=== PATIENT | female | born 1955 | race Caucasian/White ===

== ENCOUNTER 2016-10-17 11:46 | Inpatient (IN) | payer MEDICAID ==
[2016-10-17] MEDS ORDERED: INFLUENZA VACCINE/PF 60 MCG/0.5 ML DISP.SYRIN IM SCH (12:00)
[2016-10-17] MEDS ORDERED: ACETAMINOPHEN 325 MG TABLET PO PRN (12:04)
[2016-10-17] MEDS ORDERED: traZODone HCL 50 MG TABLET PO PRN (12:04)
--- NOTE | 2016-10-17 12:13 | History and Physical Report ---
History of Present Illnes - History of Present Illness Reason for Visit: COPD exacerbation History of Present Illness: Chanelle is a 61yo woman with a known medical history that includes COPD and CAD s/ p CABG. She has had a cough and shortness of breath for 5-6 days now. She has been using her nebulizer at home without much relief. Her chronic bilateral LE edema has worsened. She is having trouble walking even a few steps because of her shortness of breath. She presented at outpatient clinic today and was found to have 02 saturation of 87% as well as audible wheezing. She reported that she had pneumonia about a year ago. - Past Medical History Cardiac: AFIB, CAD Pulmonary: COPD, Pneumonia Psych: Anxiety Rheumatologic: denies: Fibromyalgia Infectious Disease: Other ENT: denies: Sinusitis Endocrine: Other (Morbid obesity) - Past Surgical History Past Surgical History: CABG (with left radial artery graft) - Past Social History Smoke: Quit Alcohol: Rare Drugs: None Lives: Alone - Health Maintenance Health Maintenance: Cholesterol Influenza Vaccine: No Pneumonia Vaccine: No Resuscitation Status: Resusciation Status Resuscitation Status Full Code Review of Systems - Review of Systems Constitutional: Fever Eyes: negative: vision change, conjunctivae inflammation ENT: negative: Ear Pain, Ear Discharge Respiratory: Cough, Shortness of Breath, SOB with Excertion, Wheezing. negative : Hemoptysis Cardiovascular: Edema, [place]ness Gastrointestinal: negative: Nausea, Vomiting Genitourinary: negative: Dysuria, Frequency Musculoskeletal: Deferred Skin: negative: Rash, Lesions Neurological: negative: Weakness, Change in Speech, Confusion - Medications/Allergies Allergies/Adverse Reactions: Allergies Allergy/AdvReac Type Severity Reaction Status Date / Time No Known Allergies Allergy Verified 11/02/13 21:52 Current Inpatient Medications: Current Inpatient Medications Acetaminophen (Tylenol) 650 mg PO Q6H PRN PRN Reason: Fever >101 Albuterol/Ipratropium (Duoneb) 3 ml NEB Q4 ARABELLA Citalopram Hydrobromide (Celexa) 40 mg PO DAILY ARABELLA Enoxaparin Sodium (Lovenox) 30 mg SQ QD ARABELLA Stop: 10/30/16 12:01 Methylprednisolone Sodium Succinate (Solu-Medrol) 125 mg IVP Q8 ARABELLA Pantoprazole Sodium (Protonix) 40 mg PO 0700 ARABELLA Trazodone HCl (Desyrel) 50 mg PO HS PRN PRN Reason: Insomnia Exam - Exam General: Alert, Oriented to Person, Oriented to Place, Moderate distress ( respiratory) HEENT: Atraumatic, PERRLA, EOMI, Anicteric Sclerae Neck: No: Stridor, Rigidity Lungs: Respiratory Distress, Wheezes, Prolonged Expiration, Decreased Air Movement Cardiovascular: Regular rate Murmur: No: Systolic Murmur, Diastolic Murmur Murmur Location: No: [place] Abdomen: Normal bowel sounds, Soft, No tenderness Genitourinary: No: Right Inguinal Hernia Male Genitourinary: No: Scrotal Edema Female Genitourinary: No: Prolapse Integumentary: Pale Extremities: No clubbing, No cyanosis, Normal pulses, Other (1+ edema) Neurological: Normal speech Psych/Mental Status: Mental status NL (but anxious) Assessment/Plan - Assessment/Plan (1) Influenza A Status: Acute Current Visit: Yes Assessment: With hypoxia and bronchospasm Symptoms have been present for long enough that she will not benefit from Tamiflu Plan: Respiratory support with nebulizers, steroids for bronchospasm (2) Anemia Status: Acute Current Visit: Yes Qualifiers: Anemia type: iron deficiency Iron deficiency anemia type: unspecified iron deficiency Qualified Code(s): D50.9 - Iron deficiency anemia, unspecified Assessment: Transfuse 2 units of packed red blood cells (3) Thrombocytopenia Status: Acute Current Visit: Yes Assessment: Chronic (4) Iron deficiency Status: Acute Current Visit: Yes (5) Morbid obesity Status: Acute Current Visit: Yes Assessment: Chronic (6) Depression Status: Acute Current Visit: Yes Assessment: Continue citalopram (7) Hypercholesterolemia Status: Acute Current Visit: Yes Assessment: Has stopped taking medications several months ago (8) Thrombocytopenia Status: Acute Current Visit: Yes Assessment: Chronic VTE Assessment - RISK FACTOR SCORE VTE RISK FACTOR SCORES: AGE OVER 60 YEARS, ACUTE RESPIRATORY FAILURE/SEVERE COPD - RISK VTE MODERATE RISK: SCORE OF 2 (RISK PROXIMAL DVT 2-4%) PROPHYAXIS NEEDED (On lovenox and SCDs)
[2016-10-17] MEDS ORDERED: SALINE FLUSH 10 ML DISP.SYRIN IVF ONE (12:27)
[2016-10-17 12:31] VITALS: BMI 43.5
[2016-10-17 13:02] LABS: BASOPHILS % 0.4 (0.0-1.5); EOSINOPHILS % 0.4 % (0.0-6.8); LYMPHOCYTES # 0.6 # k/uL (0.6-4.0); MONOCYTES # 0.4 # k/uL (0.0-0.9); MONOCYTES % 10.5 % (0.0-11.0); NEUTROPHILS # 2.5 # k/uL (1.4-7.7)
--- NOTE | 2016-10-17 13:26 | Diagnostic Imaging Report ---
[facility] [address] [facility].[address] [address] Report Submission Date: Oct 17, 2016 12:43:05 PM LABORER PIPELINE Patient Study Name: YAZ SAN Date: Oct 17, 2016 12:11:33 PM LABORER PIPELINE MRN: [id number] Modality Type: CR Gender: F Description: CHEST : 57 Institution: [facility] Physician SOUTH WING/MED SURG Chest -two views CLINICAL HISTORY: Cough, wheezing and dyspnea for 5 days. FINDINGS: Examination of the chest in PA and lateral views with comparison to examination of 07/24/2014 demonstrates cardiomegaly and aortic atherosclerosis. Small right effusion blunts the costophrenic angle. Multiple sternotomy wires are again demonstrated. There is mild pulmonary vascular congestion with perivascular and peribronchial cuffing worse in the perihilar regions. IMPRESSION: Cardiomegaly and aortic atherosclerosis. Pulmonary vascular congestion and right effusion consistent with congestive heart failure. Postoperative chest. Electronically signed on Oct 17, 2016 12:43:05 PM LABORER PIPELINE by: Kevin ADAM
[2016-10-17] MEDS: ENOXAPARIN SODIUM 30 MG/0.3 ML DISP.SYRIN SQ SCH (13:52)
[2016-10-17] MEDS: methylPREDNISolone SOD SUCC 125 MG/2 ML VIAL IVP SCH ×2 (13:53→20:11)
[2016-10-17] MEDS: IPRATROPIUM/ALBUTEROL SULFATE 3 ML AMPUL.NEB NEB SCH ×3 (13:53→20:15)
[2016-10-17] MEDS ORDERED: 0.9 % SODIUM CHLORIDE 100 ML IV ONE (20:13)
[2016-10-18] MEDS: IPRATROPIUM/ALBUTEROL SULFATE 3 ML AMPUL.NEB NEB SCH ×6 (00:54→20:58)
[2016-10-18] MEDS ORDERED: SALINE FLUSH 10 ML DISP.SYRIN IVF ONE ×7 (05:29→19:23)
[2016-10-18] MEDS: methylPREDNISolone SOD SUCC 125 MG/2 ML VIAL IVP SCH ×3 (05:38→20:56)
[2016-10-18 06:35] LABS: MEAN CORPUSCULAR HEMOGLOBIN 18.8 pg (28.0-34.0)
[2016-10-18] MEDS ORDERED: PANTOPRAZOLE SODIUM 40 MG TABLET PO SCH (07:00)
[2016-10-18] MEDS ORDERED: 0.9 % SODIUM CHLORIDE 250 ML IV ONE (07:02)
[2016-10-18] MEDS ORDERED: FUROSEMIDE 40 MG/4 ML VIAL IVP ONE (07:43)
[2016-10-18] MEDS ORDERED: diphenhydrAMINE HCL 25 MG TABLET PO ONE ×2 (07:43→14:14)
[2016-10-18] MEDS ORDERED: ACETAMINOPHEN 325 MG TABLET PO ONE ×2 (07:46→14:14)
--- NOTE | 2016-10-18 07:51 | Inpatient Progress Note ---
Subjective - Required Recertification Statement I anticipate X number of days because-include discharge plan: 5 - Review of Systems Subjective: Patient still feels weak and coughing a lot. Objective - Exam Vitals and I&O: Vital Signs Temp 96.8 F L 10/18/16 06:00 Pulse 92 H 10/18/16 06:00 Resp 16 10/18/16 06:00 BP 160/83 10/18/16 06:00 Pulse Ox 92 10/18/16 06:00 Intake & Output 10/17/16 10/17/16 10/18/16 11:59 23:59 11:59 Intake Total 600 Output Total 800 Balance 600 -800 Weight 107.955 kg 105.233 kg Intake: Oral 600 Output: Urine 800 Other: Voiding Method Toilet # Voids 1 # Bowel Movements 0 General: Alert, Oriented to Person, Oriented to Place, Oriented to Time, Cooperative, Mild distress Lungs: Wheezes, Rhonchi Cardiovascular: Regular rate Abdomen: Other (OTDD - only minimal stool sent for guiac. ? old blood on back of underwear.) - Results Results: Laboratory Results WBC 2.70 K/ul (4.00-12.00) L 10/18/16 06:15 RBC 3.40 M/ul (3.90-5.20) L 10/18/16 06:15 Hgb 6.4 g/dL (12.0-16.0) L* 10/18/16 06:15 Hct 25.7 % (34.5-46.5) L 10/18/16 06:15 MCV 75.4 fl (80.0-100.0) L 10/18/16 06:15 MCH 18.8 pg (28.0-34.0) L 10/18/16 06:15 MCHC 0.0 g/dL (30.0-36.0) L 10/18/16 06:15 RDW 18.0 % (11.3-14.3) H 10/18/16 06:15 Plt Count 40 K/mm3 (130-400) L 10/18/16 06:15 Neut % (Auto) 69.2 % (39.0-79.0) 10/17/16 12:45 Lymph % (Auto) 17.0 % (16.0-50.0) 10/17/16 12:45 [place] % (Auto) 10.5 % (0.0-11.0) 10/17/16 12:45 Eos % (Auto) 0.4 % (0.0-6.8) 10/17/16 12:45 Baso % (Auto) 0.4 (0.0-1.5) 10/17/16 12:45 Neut # 2.5 # k/uL (1.4-7.7) 10/17/16 12:45 Lymph # 0.6 # k/uL (0.6-4.0) 10/17/16 12:45 [place] # 0.4 # k/uL (0.0-0.9) 10/17/16 12:45 Eos # 0.0 # k/uL (0.0-0.6) 10/17/16 12:45 Baso # 0.0 # k/uL (0.0-0.5) 10/17/16 12:45 Reactive Lymphs % 2.5 % (0.0-5.0) 10/17/16 12:45 Reactive Lymphs # 0.1 # k/uL (0.0-0.8) 10/17/16 12:45 Sodium 134 mmol/L (136-145) L 10/17/16 12:45 Potassium 4.6 mmol/L (3.5-5.0) 10/17/16 12:45 Chloride 101 mmol/L (98-110) 10/17/16 12:45 Carbon Dioxide 26 mmol/L (20-32) 10/17/16 12:45 BUN 25 mg/dL (10-26) 10/17/16 12:45 Creatinine 1.7 mg/dL (0.4-1.5) H 10/17/16 12:45 Estimated Creat Clear 70 10/17/16 12:45 Est GFR ( Amer) 39 (60-) L 10/17/16 12:45 Est GFR (Non-Af Amer) 33 (60-) L 10/17/16 12:45 Glucose 88 mg/dL (70-99) 10/17/16 12:45 Calcium 9.5 mg/dL (8.5-10.5) 10/17/16 12:45 Total Bilirubin 0.9 mg/dL (0.2-1.2) 10/17/16 12:45 AST 40 U/L (0-41) 10/17/16 12:45 ALT 23 U/L (0-45) 10/17/16 12:45 Alkaline Phosphatase 74 U/L (46-116) 10/17/16 12:45 Troponin I 0.05 ng/mL (0.03-0.06) 10/17/16 12:45 NT-Pro-B Natriuret Pep 2865.3 pg/mL (15.0-125.0) H 10/17/16 12:45 Total Protein 7.7 g/dL (6.0-8.5) 10/17/16 12:45 Albumin 4.6 g/dL (3.0-5.5) 10/17/16 12:45 Influenza Type A Ag Positive (NEGATIVE) H 10/17/16 13:15 Influenza Type B Ag Negative (NEGATIVE) 10/17/16 13:15 Assessment/Plan - Assessment/Plan (1) CHF (congestive heart failure) Status: Acute Current Visit: Yes Qualifiers: Congestive heart failure type: unspecified congestive heart failure type Congestive heart failure chronicity: acute on chronic Qualified Code(s): I50.9 - Heart failure, unspecified Plan: Patient had stopped meds except lasix. Thinks lisinopril made her cough. Start ARB and add bblocker if tolerated. Plan echo as outpatient. IV lasix today before and between blood transfusion. In the past diuresis was slowed due to worsening creatinine. Will watch closely. (2) Anemia Status: Acute Current Visit: Yes Qualifiers: Anemia type: iron deficiency Iron deficiency anemia type: unspecified iron deficiency Qualified Code(s): D50.9 - Iron deficiency anemia, unspecified Plan: Iron studies ordered. Plan slow transfusion of 2 units today (hgb down to 6.4 with no IVF running). STool guiac negative today but not much stool sent. Plan to repeat stool guiacs. H/O ulcer. Will change protonix to IV. (3) Influenza A Status: Acute Current Visit: Yes Plan: Given severity of illness, will start tamiflu. (4) Morbid obesity Status: Acute Current Visit: Yes (5) Thrombocytopenia Status: Acute Current Visit: Yes Plan: H/O ITP. Will not do due lovenox as a result. JOEL bang applied. (6) COPD exacerbation Status: Acute Current Visit: Yes Plan: Continue IV steroids, duonebs and O2. Patient has qualified for home O2 in past.
[2016-10-18] MEDS ORDERED: 0.9 % SODIUM CHLORIDE 50 ML IV ONE (07:58)
[2016-10-18] MEDS ORDERED: PANTOPRAZOLE SODIUM INJ. 40 MG VIAL ONE (07:59)
[2016-10-18] MEDS: CITALOPRAM HYDROBROMIDE 20 MG TABLET PO SCH (08:09)
[2016-10-18] MEDS: OSELTAMIVIR PHOSPHATE 75 MG CAPSULE PO SCH ×2 (08:09→20:57)
[2016-10-18] MEDS ORDERED: LOSARTAN POTASSIUM 50 MG TABLET PO SCH (09:00)
[2016-10-18] MEDS ORDERED: guaiFENesin/CODEINE PHOS 30ML BOTTLE PO PRN (09:25)
[2016-10-18] MEDS ORDERED: METOPROLOL TARTRATE 50 MG TABLET PO ONE (09:26)
[2016-10-18] MEDS ORDERED: HYPROMELLOSE OPTH DROPS OP PRN (11:21)
[2016-10-18] MEDS ORDERED: FUROSEMIDE 40 MG/4 ML VIAL IVP SCH (13:00)
[2016-10-18] MEDS: ENOXAPARIN SODIUM 30 MG/0.3 ML DISP.SYRIN SQ SCH (13:07)
[2016-10-18] MEDS: PANTOPRAZOLE SODIUM 40 MG in 0.9 % SODIUM CHLORIDE 50 ML IV SCH (13:19)
[2016-10-18 19:21] LABS: SERUM IRON 13 ug/dL (37-145)
[2016-10-18 19:34] LABS: MEAN CORPUSCULAR HEMOGLOBIN 21.3 pg (28.0-34.0)
[2016-10-19] MEDS: IPRATROPIUM/ALBUTEROL SULFATE 3 ML AMPUL.NEB NEB SCH ×6 (00:55→21:01)
[2016-10-19] MEDS ORDERED: SALINE FLUSH 10 ML DISP.SYRIN IVF ONE ×3 (04:44→20:58)
[2016-10-19] MEDS: methylPREDNISolone SOD SUCC 125 MG/2 ML VIAL IVP SCH ×3 (06:01→20:57)
[2016-10-19 07:13] LABS: BASOPHILS % 0.1 (0.0-1.5); EOSINOPHILS % 0.1 % (0.0-6.8); LYMPHOCYTES # 0.6 # k/uL (0.6-4.0); MEAN CORPUSCULAR HEMOGLOBIN 21.1 pg (28.0-34.0); MONOCYTES # 0.2 # k/uL (0.0-0.9); MONOCYTES % 2.1 % (0.0-11.0); NEUTROPHILS # 6.2 # k/uL (1.4-7.7)
[2016-10-19 07:19] LABS: ANISOCYTOSIS 2+ (NEGATIVE); EOSINOPHILS % 1 % (0-7); HYPOCHROMASIA 1+ (NEGATIVE); SEGMENTED NEUTROPHILS % 83 % (39-79)
--- NOTE | 2016-10-19 07:38 | Inpatient Progress Note ---
Subjective - Required Recertification Statement I anticipate X number of days because-include discharge plan: 2 - Review of Systems Subjective: Patient feeling some better. Slept poorly. Breathing is improved. Still coughing. Objective - Exam Vitals and I&O: Vital Signs Temp 98.5 F 10/19/16 05:51 Pulse 81 10/19/16 05:51 Resp 20 10/19/16 05:51 BP 130/61 10/19/16 05:51 Pulse Ox 98 10/19/16 05:51 Intake & Output 10/18/16 10/18/16 10/19/16 11:59 23:59 11:59 Intake Total 360 2300 Output Total 800 1350 600 Balance -440 950 -600 Weight 105.233 kg 107.048 kg Intake: IV 75 Right Antecubital 75 Oral 360 1900 Blood Product 325 Output: Urine 800 1350 600 Other: Voiding Method Bedside Commode Bedside Commode # Voids 1 # Bowel Movements 0 General: Alert, Oriented to Person, Oriented to Place, Oriented to Time, Cooperative, No acute distress Lungs: Wheezes Cardiovascular: Regular rate - Results Results: Laboratory Results WBC 7.00 K/ul (4.00-12.00) 10/19/16 06:45 RBC 4.11 M/ul (3.90-5.20) 10/19/16 06:45 Hgb 8.7 g/dL (12.0-16.0) L 10/19/16 06:45 Hct 32.0 % (34.5-46.5) L 10/19/16 06:45 MCV 77.9 fl (80.0-100.0) L 10/19/16 06:45 MCH 21.1 pg (28.0-34.0) L 10/19/16 06:45 MCHC 27.1 g/dL (30.0-36.0) L 10/19/16 06:45 RDW 17.9 % (11.3-14.3) H 10/19/16 06:45 Plt Count 39 K/mm3 (130-400) L 10/19/16 06:45 Neut % (Auto) 88.4 % (39.0-79.0) H 10/19/16 06:45 Lymph % (Auto) 8.7 % (16.0-50.0) L 10/19/16 06:45 [place] % (Auto) 2.1 % (0.0-11.0) 10/19/16 06:45 Eos % (Auto) 0.1 % (0.0-6.8) 10/19/16 06:45 Baso % (Auto) 0.1 (0.0-1.5) 10/19/16 06:45 Neut # 6.2 # k/uL (1.4-7.7) 10/19/16 06:45 Lymph # 0.6 # k/uL (0.6-4.0) 10/19/16 06:45 [place] # 0.2 # k/uL (0.0-0.9) 10/19/16 06:45 Eos # 0.0 # k/uL (0.0-0.6) 10/19/16 06:45 Baso # 0.0 # k/uL (0.0-0.5) 10/19/16 06:45 Seg Neutrophils % 83 % (39-79) H 10/18/16 19:25 Band Neutrophils % 15 % (0-12) H 10/18/16 19:25 Lymphocytes % 1 % (16-50) L 10/18/16 19:25 Reactive Lymphs % 0.7 % (0.0-5.0) 10/19/16 06:45 Eosinophils % 1 % (0-7) 10/18/16 19:25 Reactive Lymphs # 0.0 # k/uL (0.0-0.8) 10/19/16 06:45 Plt Morphology Comment Normal (NORMAL) 10/18/16 19:25 Hypochromasia 1+ (NEGATIVE) H 10/18/16 19:25 Anisocytosis 2+ (NEGATIVE) H 10/18/16 19:25 RBC Morph Comment Abnormal (NORMAL) H 10/18/16 19:25 Sodium 136 mmol/L (136-145) 10/19/16 06:45 Potassium 5.1 mmol/L (3.5-5.0) H 10/19/16 06:45 Chloride 104 mmol/L (98-110) 10/19/16 06:45 Carbon Dioxide 25 mmol/L (20-32) 10/19/16 06:45 BUN 37 mg/dL (10-26) H 10/19/16 06:45 Creatinine 1.6 mg/dL (0.4-1.5) H 10/19/16 06:45 Estimated Creat Clear 74 10/19/16 06:45 Est GFR ( Amer) 42 (60-) L 10/19/16 06:45 Est GFR (Non-Af Amer) 35 (60-) L 10/19/16 06:45 Glucose 130 mg/dL (70-99) H 10/19/16 06:45 Calcium 9.2 mg/dL (8.5-10.5) 10/19/16 06:45 Iron 13 ug/dL (37-145) L 10/18/16 06:15 TIBC 392 ug/dL (250-425) 10/18/16 06:15 % Saturation 3 % (20-50) L 10/18/16 06:15 Ferritin 19 ng/mL (13-150) 10/18/16 06:15 Total Bilirubin 0.9 mg/dL (0.2-1.2) 10/17/16 12:45 AST 40 U/L (0-41) 10/17/16 12:45 ALT 23 U/L (0-45) 10/17/16 12:45 Alkaline Phosphatase 74 U/L (46-116) 10/17/16 12:45 Troponin I 0.05 ng/mL (0.03-0.06) 10/17/16 12:45 NT-Pro-B Natriuret Pep 2865.3 pg/mL (15.0-125.0) H 10/17/16 12:45 Total Protein 7.7 g/dL (6.0-8.5) 10/17/16 12:45 Albumin 4.6 g/dL (3.0-5.5) 10/17/16 12:45 Stool Guaiac Test Negative (NEGATIVE) 10/18/16 08:00 Influenza Type A Ag Positive (NEGATIVE) H 10/17/16 13:15 Influenza Type B Ag Negative (NEGATIVE) 10/17/16 13:15 Assessment/Plan - Assessment/Plan (1) CHF (congestive heart failure) Status: Acute Current Visit: Yes Qualifiers: Congestive heart failure type: unspecified congestive heart failure type Congestive heart failure chronicity: acute on chronic Qualified Code(s): I50.9 - Heart failure, unspecified Plan: Will give IV lasix this am. Patient had tachycardia yesterday so losartan not given, but metoprolol. Brought BP and pulse low. Will start losartan again today. low sodium diet. (2) Anemia Status: Acute Current Visit: Yes Qualifiers: Anemia type: iron deficiency Iron deficiency anemia type: unspecified iron deficiency Qualified Code(s): D50.9 - Iron deficiency anemia, unspecified Plan: Improved after 2 units of prbc's. STool guiac negative x 2. Iron deficient. Start FeSO4. Patient reports it made her sick in past so will watch closely. Watch for constipation. (3) Influenza A Status: Acute Current Visit: Yes Plan: Cont. tamiflu. (4) Morbid obesity Status: Acute Current Visit: Yes (5) Thrombocytopenia Status: Acute Current Visit: Yes (6) COPD exacerbation Status: Acute Current Visit: Yes Plan: Cont. IV steroids.
[2016-10-19] MEDS ORDERED: FUROSEMIDE 40 MG/4 ML VIAL IVP ONE (08:03)
[2016-10-19] MEDS: PANTOPRAZOLE SODIUM 40 MG in 0.9 % SODIUM CHLORIDE 50 ML IV SCH (10:04)
[2016-10-19] MEDS: FERROUS SULFATE 325 MG TABLET PO SCH ×2 (10:42→18:50)
[2016-10-19] MEDS: LOSARTAN POTASSIUM 50 MG TABLET PO SCH (10:42)
[2016-10-19] MEDS: ENOXAPARIN SODIUM 30 MG/0.3 ML DISP.SYRIN SQ SCH (10:43)
[2016-10-19] MEDS: CITALOPRAM HYDROBROMIDE 20 MG TABLET PO SCH (10:43)
[2016-10-19] MEDS: OSELTAMIVIR PHOSPHATE 75 MG CAPSULE PO SCH ×2 (10:43→21:38)
[2016-10-19] MEDS ORDERED: METOPROLOL TARTRATE 50 MG TABLET PO ONE (19:34)
[2016-10-20] MEDS: IPRATROPIUM/ALBUTEROL SULFATE 3 ML AMPUL.NEB NEB SCH ×7 (01:08→23:16)
[2016-10-20] MEDS ORDERED: SALINE FLUSH 10 ML DISP.SYRIN IVF ONE ×5 (05:43→14:09)
[2016-10-20] MEDS: methylPREDNISolone SOD SUCC 125 MG/2 ML VIAL IVP SCH ×3 (05:44→23:05)
--- NOTE | 2016-10-20 09:05 | Inpatient Progress Note ---
Subjective - Required Recertification Statement I anticipate X number of days because-include discharge plan: 2 - Review of Systems Subjective: Patient worried about green sputum she is coughing up. Got diarrhea from iron. HR has been up to 160's when she is up moving. Has received 2 doses of metoprolol as a result. Objective - Exam Vitals and I&O: Vital Signs Temp 96.6 F L 10/20/16 06:00 Pulse 115 H 10/20/16 06:00 Resp 22 10/20/16 06:00 BP 106/55 10/20/16 06:00 Pulse Ox 95 10/20/16 06:00 Intake & Output 10/19/16 10/19/16 10/20/16 11:59 23:59 11:59 Intake Total 240 560 Output Total 600 Balance -360 560 Weight 107.048 kg 107.501 kg Intake: Oral 240 560 Output: Urine 600 Other: Voiding Method Bedside Commode Toilet # Voids 2 2 # Bowel Movements 2 General: Alert, Oriented to Person, Oriented to Place, Oriented to Time, Cooperative, No acute distress Lungs: Wheezes, Rhonchi Cardiovascular: Regular rate - Results Results: Laboratory Results WBC 7.00 K/ul (4.00-12.00) 10/19/16 06:45 RBC 4.11 M/ul (3.90-5.20) 10/19/16 06:45 Hgb 8.7 g/dL (12.0-16.0) L 10/19/16 06:45 Hct 32.0 % (34.5-46.5) L 10/19/16 06:45 MCV 77.9 fl (80.0-100.0) L 10/19/16 06:45 MCH 21.1 pg (28.0-34.0) L 10/19/16 06:45 MCHC 27.1 g/dL (30.0-36.0) L 10/19/16 06:45 RDW 17.9 % (11.3-14.3) H 10/19/16 06:45 Plt Count 39 K/mm3 (130-400) L 10/19/16 06:45 Neut % (Auto) 88.4 % (39.0-79.0) H 10/19/16 06:45 Lymph % (Auto) 8.7 % (16.0-50.0) L 10/19/16 06:45 [place] % (Auto) 2.1 % (0.0-11.0) 10/19/16 06:45 Eos % (Auto) 0.1 % (0.0-6.8) 10/19/16 06:45 Baso % (Auto) 0.1 (0.0-1.5) 10/19/16 06:45 Neut # 6.2 # k/uL (1.4-7.7) 10/19/16 06:45 Lymph # 0.6 # k/uL (0.6-4.0) 10/19/16 06:45 [place] # 0.2 # k/uL (0.0-0.9) 10/19/16 06:45 Eos # 0.0 # k/uL (0.0-0.6) 10/19/16 06:45 Baso # 0.0 # k/uL (0.0-0.5) 10/19/16 06:45 Seg Neutrophils % 83 % (39-79) H 10/18/16 19:25 Band Neutrophils % 15 % (0-12) H 10/18/16 19:25 Lymphocytes % 1 % (16-50) L 10/18/16 19:25 Reactive Lymphs % 0.7 % (0.0-5.0) 10/19/16 06:45 Eosinophils % 1 % (0-7) 10/18/16 19:25 Reactive Lymphs # 0.0 # k/uL (0.0-0.8) 10/19/16 06:45 Plt Morphology Comment Normal (NORMAL) 10/18/16 19:25 Hypochromasia 1+ (NEGATIVE) H 10/18/16 19:25 Anisocytosis 2+ (NEGATIVE) H 10/18/16 19:25 RBC Morph Comment Abnormal (NORMAL) H 10/18/16 19:25 Sodium 136 mmol/L (136-145) 10/19/16 06:45 Potassium 5.1 mmol/L (3.5-5.0) H 10/19/16 06:45 Chloride 104 mmol/L (98-110) 10/19/16 06:45 Carbon Dioxide 25 mmol/L (20-32) 10/19/16 06:45 BUN 37 mg/dL (10-26) H 10/19/16 06:45 Creatinine 1.6 mg/dL (0.4-1.5) H 10/19/16 06:45 Estimated Creat Clear 74 10/19/16 06:45 Est GFR ( Amer) 42 (60-) L 10/19/16 06:45 Est GFR (Non-Af Amer) 35 (60-) L 10/19/16 06:45 Glucose 130 mg/dL (70-99) H 10/19/16 06:45 Calcium 9.2 mg/dL (8.5-10.5) 10/19/16 06:45 Iron 13 ug/dL (37-145) L 10/18/16 06:15 TIBC 392 ug/dL (250-425) 10/18/16 06:15 % Saturation 3 % (20-50) L 10/18/16 06:15 Ferritin 19 ng/mL (13-150) 10/18/16 06:15 Total Bilirubin 0.9 mg/dL (0.2-1.2) 10/17/16 12:45 AST 40 U/L (0-41) 10/17/16 12:45 ALT 23 U/L (0-45) 10/17/16 12:45 Alkaline Phosphatase 74 U/L (46-116) 10/17/16 12:45 Troponin I 0.05 ng/mL (0.03-0.06) 10/17/16 12:45 NT-Pro-B Natriuret Pep 2865.3 pg/mL (15.0-125.0) H 10/17/16 12:45 Total Protein 7.7 g/dL (6.0-8.5) 10/17/16 12:45 Albumin 4.6 g/dL (3.0-5.5) 10/17/16 12:45 Occult Blood (ICT) #2 Negative (NEGATIVE) 10/19/16 05:00 Stool Guaiac Test Negative (NEGATIVE) 10/18/16 08:00 Influenza Type A Ag Positive (NEGATIVE) H 10/17/16 13:15 Influenza Type B Ag Negative (NEGATIVE) 10/17/16 13:15 Assessment/Plan - Assessment/Plan (1) CHF (congestive heart failure) Status: Acute Current Visit: Yes Qualifiers: Congestive heart failure type: unspecified congestive heart failure type Congestive heart failure chronicity: acute on chronic Qualified Code(s): I50.9 - Heart failure, unspecified Plan: Will continue IV lasix today. Cr ok. Repeat CXR. RE-evaluate need for lasix tomorrow. Weight unchanged. Question accurate I&O's. Watch K+ and Cr. Try to add low dose BBlocker today of coreg to control HR. Watch making asthma worse and dropping BP too low. (2) Anemia Status: Acute Current Visit: Yes Qualifiers: Anemia type: iron deficiency Iron deficiency anemia type: unspecified iron deficiency Qualified Code(s): D50.9 - Iron deficiency anemia, unspecified Plan: Stable after 2 units PRBC's. (3) Influenza A Status: Acute Current Visit: Yes (4) Morbid obesity Status: Acute Current Visit: Yes (5) Thrombocytopenia Status: Acute Current Visit: Yes (6) COPD exacerbation Status: Acute Current Visit: Yes Plan: Cont. IV steroids, duonebs, O2. Repeat CXR today to check again for pneumonia. Consider antibiotic.
[2016-10-20] MEDS: CITALOPRAM HYDROBROMIDE 20 MG TABLET PO SCH (09:33)
[2016-10-20] MEDS: LOSARTAN POTASSIUM 50 MG TABLET PO SCH (09:33)
[2016-10-20] MEDS: PANTOPRAZOLE SODIUM 40 MG in 0.9 % SODIUM CHLORIDE 50 ML IV SCH (09:34)
[2016-10-20] MEDS: OSELTAMIVIR PHOSPHATE 75 MG CAPSULE PO SCH ×2 (09:35→20:27)
[2016-10-20] MEDS: CARVEDILOL 6.25 MG TABLET PO SCH ×3 (09:37→23:14)
[2016-10-20] MEDS: FUROSEMIDE 20 MG/2 ML VIAL IVP SCH ×2 (10:40→23:05)
[2016-10-20] MEDS: FERROUS SULFATE 325 MG TABLET PO SCH ×2 (12:02→18:13)
[2016-10-20] MEDS ORDERED: methylPREDNISolone SOD SUCC 40 MG/ML VIAL ONE ×2 (14:16→19:43)
--- NOTE | 2016-10-20 16:53 | Diagnostic Imaging Report ---
[facility] [address] [facility].[address] [address] Report Submission Date: Oct 20, 2016 1:02:24 PM [employer] OUTREACH WORKER Patient Study Name: YAZ SAN Date: Oct 20, 2016 10:10:07 AM [employer] HE[employer] OUTREACH WORKER MRN: [id number] Modality Type: CR Gender: F Description: CHEST : 57 Institution: [facility] Physician SOUTH WING/MED SURG Chest two views HISTORY: Cough and wheezing FINDINGS: Central pulmonary artery enlargement and median sternotomy are observed. Right posterior costophrenic sulcus blunting is observed. There is no evidence of confluent infiltrate. Heart size is upper normal. The left heart border is obscured. IMPRESSION: Central pulmonary artery enlargement raises the possibility of pulmonary hypertension. Sternotomy. Small right pleural effusion. Obscured left heart border suggests pericardial fat pad versus lingular atelectasis or scar. Electronically signed on Oct 20, 2016 1:02:24 PM PUBLIC HEALTH OUTREACH WORKER by: Harry ADAM
[2016-10-20] MEDS ORDERED: FLUCONAZOLE 150 MG TABLET PO ONE ×2 (18:00→18:11)
[2016-10-20] MEDS: ENOXAPARIN SODIUM 30 MG/0.3 ML DISP.SYRIN SQ SCH (18:12)
[2016-10-20] MEDS ORDERED: NYSTATIN POWDER BOTTLE TP ONE (19:42)
[2016-10-20] MEDS: NYSTATIN POWDER BOTTLE TP SCH (20:27)
[2016-10-21] MEDS: IPRATROPIUM/ALBUTEROL SULFATE 3 ML AMPUL.NEB NEB SCH ×6 (01:00→22:18)
[2016-10-21] MEDS ORDERED: methylPREDNISolone SOD SUCC 40 MG/ML VIAL ONE ×2 (04:07→13:04)
[2016-10-21] MEDS ORDERED: SALINE FLUSH 10 ML DISP.SYRIN IVF ONE ×5 (04:08→22:27)
[2016-10-21] MEDS: methylPREDNISolone SOD SUCC 125 MG/2 ML VIAL IVP SCH ×3 (06:15→23:39)
[2016-10-21 07:27] LABS: eGFR (African) > 60; eGFR (Non-African) > 60
[2016-10-21] MEDS: CARVEDILOL 6.25 MG TABLET PO SCH ×2 (08:37→17:42)
[2016-10-21] MEDS: CITALOPRAM HYDROBROMIDE 20 MG TABLET PO SCH (08:38)
[2016-10-21] MEDS: LOSARTAN POTASSIUM 50 MG TABLET PO SCH (08:38)
[2016-10-21] MEDS: NYSTATIN POWDER BOTTLE TP SCH ×2 (08:39→20:55)
[2016-10-21] MEDS: PANTOPRAZOLE SODIUM 40 MG in 0.9 % SODIUM CHLORIDE 50 ML IV SCH (08:39)
[2016-10-21] MEDS: OSELTAMIVIR PHOSPHATE 75 MG CAPSULE PO SCH ×2 (08:39→20:59)
[2016-10-21] MEDS: FERROUS SULFATE 325 MG TABLET PO SCH ×2 (08:40→17:43)
[2016-10-21] MEDS: FUROSEMIDE 20 MG/2 ML VIAL IVP SCH ×2 (09:48→23:40)
[2016-10-21] MEDS: ENOXAPARIN SODIUM 30 MG/0.3 ML DISP.SYRIN SQ SCH (13:18)
[2016-10-22] MEDS: IPRATROPIUM/ALBUTEROL SULFATE 3 ML AMPUL.NEB NEB SCH ×4 (01:45→13:18)
[2016-10-22] MEDS: methylPREDNISolone SOD SUCC 125 MG/2 ML VIAL IVP SCH ×2 (06:21→13:18)
--- NOTE | 2016-10-22 08:36 | Discharge Summary ---
Discharge Summary - Discharge Sumary History of Present Illness: Chanelle is a 61yo woman with a known medical history that includes COPD and CAD s/ p CABG. She has had a cough and shortness of breath for 5-6 days now. She has been using her nebulizer at home without much relief. Her chronic bilateral LE edema has worsened. She is having trouble walking even a few steps because of her shortness of breath. She presented at outpatient clinic today and was found to have 02 saturation of 87% as well as audible wheezing. She reported that she had pneumonia about a year ago. Condition at Discharge: Stable Home Medications: Ambulatory Orders Medication Instructions Recorded Albuterol Sulfate 2.5 mg NEB Q4H #100 ampul.neb 10/22/16 Carvedilol [Coreg] 3.15 mg PO BID #60 tablet 10/22/16 Ferrous Sulfate [Feosol] 325 mg PO BID #60 tablet. 10/22/16 Furosemide [Lasix] 40 mg PO DAILY #30 tablet 10/22/16 Losartan Potassium [Cozaar] 25 mg PO DAILY #30 tablet 10/22/16 predniSONE [Deltasone] 10 mg PO DAILY #30 tablet 10/22/16 Consultations this Visit: None Procedures this Visit: Transfusion (2 units PRBC's) Allergies/Adverse Reactions: Allergies Allergy/AdvReac Type Severity Reaction Status Date / Time No Known Allergies Allergy Verified 11/02/13 21:52 Discharge Summary: Patient was admitted with Influenza A causing COPD exacerbation and CHF exacerbation. This was compounded with the fact that patient had not been compliant with medications. She would found to be anemic with HGB dropping to 6.4. Stool guiac negative x 2. Iron studies showed deficiency. Transfused 2 units PRBC's. Each unit was premedicated with lasix 40 mg IV, tylenol 650 mg, and benadryl 25 mg po. Hgb stayed stable in the upper 8 range. Started on tamiflu 75 mg bid, solumedrol 80 mg q8hr IV, duonebs q4hr, and O2. CXR on admission showed CHF but this resolved after IV lasix diuresis. Patient would get tachycardic when up on the toilet. Coreg 3.125 mg bid was started. Patient tolerated that well. Will plan to get echo on discharge and start ARB as tolerated (ACEI cough). Weaned off O2 and discharged home in good condition. Hospital Course: Discharge Dx: Influenza A. COPD exacerbation. CHF exacerbation. Anemia with guiac negative stool x 2. Tachycardia. Disposition : home. 
[2016-10-22] MEDS: CITALOPRAM HYDROBROMIDE 20 MG TABLET PO SCH (09:15)
[2016-10-22] MEDS: LOSARTAN POTASSIUM 50 MG TABLET PO SCH (09:15)
[2016-10-22] MEDS: OSELTAMIVIR PHOSPHATE 75 MG CAPSULE PO SCH (09:16)
[2016-10-22] MEDS: CARVEDILOL 6.25 MG TABLET PO SCH (09:18)
[2016-10-22 09:23] VITALS: BP 112/63
[2016-10-22] MEDS: PANTOPRAZOLE SODIUM 40 MG in 0.9 % SODIUM CHLORIDE 50 ML IV SCH (10:04)
[2016-10-22] MEDS: NYSTATIN POWDER BOTTLE TP SCH (10:04)
[2016-10-22] MEDS: FUROSEMIDE 20 MG/2 ML VIAL IVP SCH (10:04)
[2016-10-22] MEDS ORDERED: SALINE FLUSH 10 ML DISP.SYRIN IVF ONE (10:38)
--- NOTE | 2016-10-22 11:21 | Inpatient Progress Note ---
Subjective - Required Recertification Statement I anticipate X number of days because-include discharge plan: 1 day - Review of Systems Events since last encounter: Patient states that she is feeling better today. Still having some cough and wheezing and SOB with exertion but improved. Has a mild cough. No chest pain or pressure. General: Denies: Chills HEENT: Denies: Head Aches Cardiovascular: Denies: Chest Pain, Palpitations, Orthopnea Gastrointestinal: Denies: Nausea, Vomiting, Abdominal Pain Objective - Exam Vitals and I&O: Vital Signs Temp 98.3 F 10/22/16 09:21 Pulse 117 H 10/22/16 09:21 Resp 18 10/22/16 09:21 BP 112/63 10/22/16 09:21 Pulse Ox 97 10/22/16 09:21 Intake & Output 10/21/16 10/21/16 10/22/16 11:59 23:59 11:59 Intake Total 240 840 360 Output Total 750 800 Balance -510 840 -440 Weight 107.501 kg 105.233 kg Intake: Oral 240 840 360 Output: Urine 750 800 Other: Voiding Method Toilet Toilet General: Alert, Oriented to Person, Oriented to Place, Oriented to Time, Cooperative, No acute distress Neck: Supple Lungs: Normal air movement, Wheezes (expiratory bilat). No: Rales, Rhonchi Cardiovascular: Regular rate, Normal S1, Normal S2, No murmurs Abdomen: Normal bowel sounds, Soft, No tenderness Skin: Normal, [place], Warm, Dry Neurological: Normal speech - Results Results: Laboratory Results WBC 7.00 K/ul (4.00-12.00) 10/19/16 06:45 RBC 4.11 M/ul (3.90-5.20) 10/19/16 06:45 Hgb 8.7 g/dL (12.0-16.0) L 10/19/16 06:45 Hct 32.0 % (34.5-46.5) L 10/19/16 06:45 MCV 77.9 fl (80.0-100.0) L 10/19/16 06:45 MCH 21.1 pg (28.0-34.0) L 10/19/16 06:45 MCHC 27.1 g/dL (30.0-36.0) L 10/19/16 06:45 RDW 17.9 % (11.3-14.3) H 10/19/16 06:45 Plt Count 39 K/mm3 (130-400) L 10/19/16 06:45 Neut % (Auto) 88.4 % (39.0-79.0) H 10/19/16 06:45 Lymph % (Auto) 8.7 % (16.0-50.0) L 10/19/16 06:45 [place] % (Auto) 2.1 % (0.0-11.0) 10/19/16 06:45 Eos % (Auto) 0.1 % (0.0-6.8) 10/19/16 06:45 Baso % (Auto) 0.1 (0.0-1.5) 10/19/16 06:45 Neut # 6.2 # k/uL (1.4-7.7) 10/19/16 06:45 Lymph # 0.6 # k/uL (0.6-4.0) 10/19/16 06:45 [place] # 0.2 # k/uL (0.0-0.9) 10/19/16 06:45 Eos # 0.0 # k/uL (0.0-0.6) 10/19/16 06:45 Baso # 0.0 # k/uL (0.0-0.5) 10/19/16 06:45 Seg Neutrophils % 83 % (39-79) H 10/18/16 19:25 Band Neutrophils % 15 % (0-12) H 10/18/16 19:25 Lymphocytes % 1 % (16-50) L 10/18/16 19:25 Reactive Lymphs % 0.7 % (0.0-5.0) 10/19/16 06:45 Eosinophils % 1 % (0-7) 10/18/16 19:25 Reactive Lymphs # 0.0 # k/uL (0.0-0.8) 10/19/16 06:45 Plt Morphology Comment Normal (NORMAL) 10/18/16 19:25 Hypochromasia 1+ (NEGATIVE) H 10/18/16 19:25 Anisocytosis 2+ (NEGATIVE) H 10/18/16 19:25 RBC Morph Comment Abnormal (NORMAL) H 10/18/16 19:25 Sodium 137 mmol/L (136-145) 10/21/16 06:25 Potassium 4.2 mmol/L (3.5-5.0) 10/21/16 06:25 Chloride 102 mmol/L (98-110) 10/21/16 06:25 Carbon Dioxide 29 mmol/L (20-32) 10/21/16 06:25 BUN 35 mg/dL (10-26) H 10/21/16 06:25 Creatinine 1.2 mg/dL (0.4-1.5) 10/21/16 06:25 Estimated Creat Clear 99 10/21/16 06:25 Est GFR ( Amer) > 60 (60-) 10/21/16 06:25 Est GFR (Non-Af Amer) > 60 (60-) 10/21/16 06:25 Glucose 118 mg/dL (70-99) H 10/21/16 06:25 Calcium 9.3 mg/dL (8.5-10.5) 10/21/16 06:25 Iron 13 ug/dL (37-145) L 10/18/16 06:15 TIBC 392 ug/dL (250-425) 10/18/16 06:15 % Saturation 3 % (20-50) L 10/18/16 06:15 Ferritin 19 ng/mL (13-150) 10/18/16 06:15 Total Bilirubin 0.9 mg/dL (0.2-1.2) 10/17/16 12:45 AST 40 U/L (0-41) 10/17/16 12:45 ALT 23 U/L (0-45) 10/17/16 12:45 Alkaline Phosphatase 74 U/L (46-116) 10/17/16 12:45 Troponin I 0.05 ng/mL (0.03-0.06) 10/17/16 12:45 NT-Pro-B Natriuret Pep 2865.3 pg/mL (15.0-125.0) H 10/17/16 12:45 Total Protein 7.7 g/dL (6.0-8.5) 10/17/16 12:45 Albumin 4.6 g/dL (3.0-5.5) 10/17/16 12:45 Occult Blood (ICT) #2 Negative (NEGATIVE) 10/19/16 05:00 Stool Guaiac Test Negative (NEGATIVE) 10/18/16 08:00 Influenza Type A Ag Positive (NEGATIVE) H 10/17/16 13:15 Influenza Type B Ag Negative (NEGATIVE) 10/17/16 13:15 Assessment/Plan - Assessment/Plan (1) Influenza A Status: Acute Current Visit: Yes Assessment: improved, no fever (2) COPD exacerbation Status: Acute Current Visit: Yes Assessment: stable, improved (3) CHF (congestive heart failure) Status: Acute Current Visit: Yes Qualifiers: Congestive heart failure type: unspecified congestive heart failure type Congestive heart failure chronicity: acute on chronic Qualified Code(s): I50.9 - Heart failure, unspecified Assessment: stable (4) Tachyarrhythmia Status: Acute Current Visit: Yes Assessment: Patient has been having some tachycardia, mainly with being up. Seems to be doing some better. Rate is not going up as much, is on B zohra (5) Hyperglycemia Status: Acute Current Visit: Yes Assessment: Probably relate to steroids, will continue to monitor
[2016-10-22] MEDS: FERROUS SULFATE 325 MG TABLET PO SCH (11:38)
[2016-10-22] MEDS: ENOXAPARIN SODIUM 30 MG/0.3 ML DISP.SYRIN SQ SCH (12:36)
== END 2016-10-22 13:05 | disposition home or self-care (01) | DRG 192 ==
LOC: SOUTH 11:46
PROVIDERS: ADMIT Family Medicine; ATTEND Family Medicine
DX: J44.1 Chronic obstructive pulmonary disease with (acute) exacerbation (principal); J11.1 Influenza due to unidentified influenza virus with other respiratory manifestations; D50.9 Iron deficiency anemia, unspecified; D69.6 Thrombocytopenia, unspecified; E66.01 Morbid (severe) obesity due to excess calories; F32.9 Major depressive disorder, single episode, unspecified; E78.5 Hyperlipidemia, unspecified
CPT/HCPCS: 36415; 71020; 80048; 80053; 82270; 82728; 83540; 83550; 83880; 84484; 85025; 85027; 86870; 86885; 86900; 86901; 86920; 87400; 94640; 94760; J1650; J1940; J2920; J2930; J7050; Q0163; 99222; 99232; 99238; P9040; J1030; S1016

== ENCOUNTER 2016-11-02 10:30 | Outpatient (CLI) | payer OTHER ==
[2016-11-02 10:42] LABS: EOSINOPHILS % 0.6 % (0.0-6.8); LYMPHOCYTES # 0.3 # k/uL (0.6-4.0); MEAN CORPUSCULAR HEMOGLOBIN 22.7 pg (28.0-34.0); MONOCYTES # 0.1 # k/uL (0.0-0.9); MONOCYTES % 3.1 % (0.0-11.0); NEUTROPHILS # 2.3 # k/uL (1.4-7.7)
== END 2016-11-02 10:32 ==
LOC: LAB 10:30
PROVIDERS: ATTEND Family Medicine
DX: D64.89 Other specified anemias (principal)
CPT/HCPCS: 36415; 85025

== ENCOUNTER 2018-02-27 09:43 | Outpatient (CLI) | payer OTHER ==
[2018-02-27 10:02] LABS: MEAN CORPUSCULAR HEMOGLOBIN 21.9 pg (28.0-34.0); MEAN CORPUSCULAR VOLUME 81.6 fl (80.0-100.0)
[2018-02-27 10:23] LABS: eGFR (African) > 60; eGFR (Non-African) > 60
== END 2018-02-27 09:44 ==
LOC: LAB 09:43
PROVIDERS: ATTEND Family Medicine
DX: I25.810 Atherosclerosis of coronary artery bypass graft(s) without angina pectoris (principal); D69.6 Thrombocytopenia, unspecified
CPT/HCPCS: 36415; 80053; 80061; 85027

== ENCOUNTER 2018-03-11 17:24 | Emergency (ER) | payer OTHER ==
[2018-03-11 17:59] LABS: BASOPHILS % 0.5 (0.0-1.5); EOSINOPHILS % 2.9 % (0.0-6.8); MEAN CORPUSCULAR HEMOGLOBIN 21.2 pg (28.0-34.0); MEAN CORPUSCULAR VOLUME 76.2 fl (80.0-100.0); MONOCYTES % 6.8 % (0.0-11.0); NEUTROPHILS # 2.3 # k/uL (1.4-7.7)
[2018-03-11 18:12] LABS: eGFR (African) > 60; eGFR (Non-African) > 60
--- NOTE | 2018-03-11 18:17 | ED Physician Documentation ---
Lower Extremity Problem - HISTORIAN Historian: patient - HPI Stated Complaint: bug bite Chief Complaint: Lower Extremity Problem Location of Injury: L leg Onset: other (Sunday - worsening) Timing: worse Severity: severe Quality: pain, swelling Relieved By: rest Associated Symptoms: shortness of breath (with exerction and at rest) Further Comments: yes (62 year old female patient presents with complaint of left lower leg bug bite. Patient unsure of what bit her or when. States her left lower leg became "full" last Sunday and has become worse. Has history of venous stasis, is schedule to see oncology next week for pancytopenia evaluation.) - ROS CONST: no problems MS/SKIN/LYMPH: calf pain (left ), leg swelling (Bilateral; left lower leg worse than right). denies: neck pain, joint pain CVS/RESP: shortness of breath. denies: chest pain, cough GI/: none EYES/ENT: none NERUO/PSYCH: difficulty walking (related to LLleg pain). denies: headache, dizziness, anxiety - PAST HX Past History: none PE Risk Factors: hypertension Other History: cardiac disease, CAD, CHF, other (ITP, COPD, depression, HLD) Surgeries/Procedures: cardiac bypass (2012 at [place]) Allergies/Adverse Reactions: Allergies Allergy/AdvReac Type Severity Reaction Status Date / Time iodine Allergy Verified 03/11/18 17:42 - SOCIAL HX Smoking History: quit greater than 1 year - FAMILY HX Family History: denies: none - VITAL SIGNS Vital Signs: Vital Signs Temp Pulse Resp BP Pulse Ox 98.6 F 83 24 159/56 91 L 03/11/18 17:45 03/11/18 17:45 03/11/18 17:45 03/11/18 17:45 03/11/18 17:45 - REVIEWED ASSESSMENTS Nursing Assessment Reviewed: Yes Vitals Reviewed: Yes Progress - Progress Progress: Reviewed lab results with patient. Recommended transfer to higher level of care for further work up on pancytopenia; US of left lower leg and cardiology consult. Patient would prefer [facility]. US is not available tonight at [facility]. lasix 40mg IV given in ER. Discussed medical history further with patient; Patient stopped her cardiac medication "some time ago". PENNY caused coughing and muscle cramping, lasix - patient felt like edema was worse on lasix and had cramping. Education on importance of continuing cardiac meds; discussed cardiomegaly and importance of medical management of CHF. Patient verbalized understanding. 1950 Call to [facility] - patient accepted by Dr Toro. Pending negative Troponin . Will defer CT chest to [facility] - discuss with Dr Toro. 2004 Troponin <.03, will transfer to [facility] to 6E. - EKG/XRAY/CT EKG: rhythm (SR, Rate 94, no acute changes. ) ED Results Lab/Radiology - Lab Results Lab Results: Lab Results 03/11/18 03/11/18 03/11/18 19:42 17:55 17:55 WBC RBC Hgb Hct MCV MCH MCHC RDW Plt Count Neut % (Auto) Lymph % (Auto) [place] % (Auto) Eos % (Auto) Baso % (Auto) Neut # (Auto) Lymph # (Auto) [place] # (Auto) Eos # (Auto) Baso # (Auto) Reactive Lymphs % Reactive Lymphs # PT 12.7 Seconds H Seconds (9.4-11.6) INR 1.21 H (0.9-1.2) APTT 22.5 Seconds L Seconds (24.5-32.8) D-Dimer Sodium Potassium Chloride Carbon Dioxide BUN Creatinine Estimated Creat Clear Est GFR ( Amer) Est GFR (Non-Af Amer) Glucose Calcium Total Bilirubin AST ALT Alkaline Phosphatase Troponin I < 0.03 ng/mL L ng/mL (0.03-0.06) NT-Pro-B Natriuret Pep 2214.4 pg/mL H pg/mL (15.0-125.0) Total Protein Albumin 03/11/18 03/11/18 03/11/18 17:55 17:55 17:55 WBC 3.10 K/ul L K/ul (4.00-12.00) RBC 3.51 M/ul L M/ul (3.90-5.20) Hgb 7.5 g/dL L g/dL (12.0-16.0) Hct 26.8 % L % (34.5-46.5) MCV 76.2 fl L fl (80.0-100.0) MCH 21.2 pg L pg (28.0-34.0) MCHC 27.8 g/dL L g/dL (30.0-36.0) RDW 16.0 % H % (11.3-14.3) Plt Count 60 K/mm3 L K/mm3 (130-400) Neut % (Auto) 73.7 % % (39.0-79.0) Lymph % (Auto) 14.4 % L % (16.0-50.0) [place] % (Auto) 6.8 % % (0.0-11.0) Eos % (Auto) 2.9 % % (0.0-6.8) Baso % (Auto) 0.5 (0.0-1.5) Neut # (Auto) 2.3 # k/uL # k/uL (1.4-7.7) Lymph # (Auto) 0.4 # k/uL L # k/uL (0.6-4.0) [place] # (Auto) 0.2 # k/uL # k/uL (0.0-0.9) Eos # (Auto) 0.1 # k/uL # k/uL (0.0-0.6) Baso # (Auto) 0.0 # k/uL # k/uL (0.0-0.5) Reactive Lymphs % 1.7 % % (0.0-5.0) Reactive Lymphs # 0.0 # k/uL # k/uL (0.0-0.8) PT INR APTT D-Dimer 934 ng/mL H ng/mL (6.0-682) Sodium 143 mmol/L mmol/L (136-145) Potassium 4.6 mmol/L mmol/L (3.5-5.1) Chloride 107 mmol/L mmol/L (98-107) Carbon Dioxide 26 mmol/L mmol/L (22-30) BUN 20 mg/dL H mg/dL (7-17) Creatinine 0.90 mg/dL mg/dL (0.52-1.04) Estimated Creat Clear 126 Est GFR ( Amer) > 60 (60 - ) Est GFR (Non-Af Amer) > 60 (60 - ) Glucose 122 mg/dL H mg/dL (74-106) Calcium 9.4 mg/dL mg/dL (8.4-10.2) Total Bilirubin 0.4 mg/dL mg/dL (0.2-1.3) AST 20 U/L U/L (15-46) ALT 30 U/L U/L (13-69) Alkaline Phosphatase 75 U/L U/L (38-126) Troponin I NT-Pro-B Natriuret Pep Total Protein 7.3 g/dL g/dL (6.3-8.2) Albumin 4.2 g/dL g/dL (3.5-5.0) - Radiology Radiology Impressions: Chest, two views History: Dyspnea. Findings: No comparisons available. The heart is enlarged. There is pulmonary vascular congestion present suggesting congestive heart failure. Small right pleural effusion is present with right basilar atelectasis. Impression: 1. Cardiomegaly with pulmonary vascular congestion and right pleural effusion consistent with congestive heart failure. Electronically signed on Mar 11, 2018 7:40:55 PM CDT by: Miguelangel Duke - Orders Orders: ED Orders Category Date Time Status Place IV Lock 1T Care 03/11/18 19:42 Active CHEST 2VIEW [RAD] Stat Exams 03/11/18 18:30 Taken CBC/PLATELET/DIFF Stat Lab 03/11/18 17:55 Completed CMP Stat Lab 03/11/18 17:55 Completed D DIMER Stat Lab 03/11/18 17:55 Completed NT-proBNP Stat Lab 03/11/18 17:55 Completed PT-INR Stat Lab 03/11/18 17:55 Completed PTT Stat Lab 03/11/18 17:55 Completed TROPONIN I (cTnI) Stat Lab 03/11/18 19:42 Ordered UA W/MICRO IF INDICATED Stat Lab 03/11/18 18:29 Ordered Furosemide [Lasix] Med 03/11/18 19:41 Discontinued 40 mg IVP NOW ONE EKG WITH COMPARISON Stat Ther 03/11/18 18:35 Ordered Lower Extremity Problem - EXAM General Appearance: mild distress Hips: bilateral hip: non-tender, normal inspection, normal range of motion Legs: right: non-tender, left: pain (left calf; + Faith's), other (multiple weeping areas; 2 wounds - 2cm, 6cm area of erythema and warmth distal to left knee, no drainage), bilateral: normal range of motion, swelling (venous stasis; ) Knees: bilateral: non-tender, normal inspection, normal range of motion, no evidence of injury Ankle: bilateral: non-tender, swelling (3+) EENT: eye inspection normal, ENT inspection normal, pharynx normal, no signs of dehydration, MARIELY, no nystagmus, TM's nml RESPIRATORY: no resp distress, chest non-tender, breath sounds normal, other ( dypsnea with exerction; RA Sat 89-90%) CVS: reg rate & rhythm, heart sounds normal, equal pulses, no murmur, no gallop , PMI nml, no JVD, no friction rub, tachycardia (100's) VASCULAR: no vascular compromise, pulses full/equal NEURO/PSYCH: oriented X3, CN's nml as tested, motor nml, sensation nml SKIN: normal color, warm/dry, NR, INT, PAL, DR Discharge Clincal Impression: Pancytopenia, Venous stasis, Cellulitis of left lower extremity CHF (congestive heart failure), NYHA class III Qualifiers: Congestive heart failure type: combined Congestive heart failure chronicity: acute Qualified Code(s): I50.41 - Acute combined systolic (congestive) and diastolic (congestive) heart failure Referrals: Dede Walker MD [Primary Care Provider] - 2 Days Condition: Serious Disposition: XFER SHT-TRM HOSP Decision to Admit: NO Decision Time: 20:00
[2018-03-11] MEDS ORDERED: FUROSEMIDE 40 MG/4 ML VIAL IVP ONE (19:41)
[2018-03-11 21:08] VITALS: BP 131/61
--- NOTE | 2018-03-12 06:56 | Diagnostic Imaging Report ---
MARCIA DICKEY ([employer] OPERATOR HELPER) - ER [facility] [address] [address] Report Submission Date: Mar 11, 2018 7:40:55 PM CDT Patient Study Name: YAZ SAN Date: Mar 11, 2018 7:04:59 PM CDT Modality Type: DX Gender: F Description: CHEST : 57 Institution: [facility] Physician: MARCIA DICKEY ([employer] OPERATOR HELPER) - ER Chest, two views History: Dyspnea. Findings: No comparisons available. The heart is enlarged. There is pulmonary vascular congestion present suggesting congestive heart failure. Small right pleural effusion is present with right basilar atelectasis. Impression: 1. Cardiomegaly with pulmonary vascular congestion and right pleural effusion consistent with congestive heart failure. Electronically signed on Mar 11, 2018 7:40:55 PM CDT by: Miguelangel ADAM
[2018-03-12 07:38] LABS: APPEARANCE,URINE CLOUDY (CLEAR); COLOR,URINE YELLOW (YELLOW); OCCULT BLOOD,URINE NEGATIVE (NEGATIVE)
== END 2018-03-11 21:00 | disposition short-term general hospital (02) ==
LOC: ED 17:24
DX: I50.41 Acute combined systolic (congestive) and diastolic (congestive) heart failure (principal); D61.818 Other pancytopenia; I87.2 Venous insufficiency (chronic) (peripheral); L03.116 Cellulitis of left lower limb
CPT/HCPCS: 36415; 71046; 80053; 81002; 83880; 84484; 85025; 85379; 85610; 85730; 87086; 93005; J1940; 87186; 96372; S1016

== ENCOUNTER 2018-04-09 13:30 | Outpatient (CLI) | payer OTHER ==
[2018-04-09 13:58] LABS: BASOPHILS % 0.5 (0.0-1.5); MEAN CORPUSCULAR VOLUME 80.7 fl (80.0-100.0); MONOCYTES % 5.3 % (0.0-11.0)
--- NOTE | 2018-04-09 18:03 | Diagnostic Imaging Report ---
TAWNY NOBLE [facility] [address] [facility] [address] [address] Report Submission Date: Apr 09, 2018 6:01:50 PM CDT Patient Study Name: YAZ SAN Date: Apr 09, 2018 2:03:06 PM CDT Modality Type: DX Gender: F Description: CHEST : 57 Institution: [facility] Physician: TAWNY NOBLE Pa and lateral chest Clinical history : Coughing blood Comparison 11 march 2018 Technique pa and lateral upright Findings: there is increasing right pleural effusion and right lung atelectasis. The left lungs hyperinflated. Pulmonary vascular congestion is improved. New cardiomegaly is about the same.. Findings are median sternotomy are noted. There is thoracic spondylosis Impression: Increased right pleural effusion and right base atelectasis Unchanged cardiomegaly and findings of median sternotomy Improved pulmonary vascular congestion Electronically signed on Apr 09, 2018 6:01:50 PM CDT by: Napoleon ADAM
== END 2018-04-09 13:32 ==
LOC: LAB 13:30
PROVIDERS: ATTEND Physician Assistant
DX: D61.818 Other pancytopenia (principal); R04.2 Hemoptysis
CPT/HCPCS: 36415; 71046; 85025; 85610

== ENCOUNTER 2019-05-28 15:26 | Outpatient (CLI) | payer OTHER ==
[2019-05-28 15:42] LABS: BASOPHILS % 0.2 % (0.0-1.5); NEUTROPHILS # 1.6 # k/uL (1.4-7.7)
[2019-05-28 15:48] LABS: eGFR (Non-African) > 60
== END 2019-05-28 15:28 ==
LOC: LABRHC 15:26
PROVIDERS: ATTEND Family Medicine
DX: I25.10 Atherosclerotic heart disease of native coronary artery without angina pectoris (principal)
CPT/HCPCS: 36415; 80053; 83540; 85025